=== PATIENT | female | born 1930 | race Caucasian/White ===

== ENCOUNTER → 2016-09-09 | Outpatient (CLI) | payer MEDICARE, BC ==
[~2016-09-09] MED LIST: ACETAMINOPHEN PO; AEROECLIPSE II1 EACH NEB; ALB/IPRATROPIUM/1 E2 INH; ALBUTEROL MININEB NEB; ALBUTEROL17 GM INH; ALLEGRA PO; ALLEGRA-D1 TAB.SR1 PO; ALLEGRA60 M1; AMLODIPINE BESYL5 MG PO; ASPIR-TRIN325 MG PO; ASPIRIN EC81 M1 PO; ASPIRIN81 M1 PO; ASPIRIN81 M2 PO; ASPIRIN81 MG PO; ATORVASTATIN CA80 MG PO; BENADRYL25 M1 PO; BUSPAR PO; BUSPAR5 M1 PO; BUSPAR5 MG PO; BUSPIRONE HCL10 MG PO; CIPRO HC OTIC S10 ML OT; CLEOCIN HCL300 M1 PO; CLOPIDOGREL75 MG PO; CLOTRIMAZOLE100 MG; COMBIVENT; COMBIVENT RESPIM4 GM INH; COMBIVENT U/D3 M2 INH; CORDARONE200 M1 PO; CORRECTOL5 M2 PO; CORTISPORI10 ML OTIC; DALIRESP500 MCG PO; DOCUSATE SODIU100 MG PO; FLAGYL250 M1 PO; FLONASE 0.05% N16 G1; FLONASE ALLERG9.9 ML; FUROSEMIDE40 MG PO; GLIPIZIDE XL5 MG PO; HUMIBID-LA600 MG PO; HYDROCODON-ACE1 EAC7 PO; HYDROCODON-ACE1 EAC9 PO; IMDUR-ER30 M1 DOB; IMDUR-ER30 M1 PO; IMDUR-ER60 M1 PO; ISOSORBIDE DINI30 MG PO; LACTULOSE10 G/15 M2 PO; LANSOPRAZOLE30 M2 PO; LASIX PO; LASIX20 MG PO; LEVAQUIN PO; LEVAQUIN250 MG DOB; LEVAQUIN750 M1 PO; LEVAQUIN750 MG PO; LEVOTHROID88 MCG PO; LEVOTHYROXINE75 MC1 PO; LEVOTHYROXINE75 MCG PO; LISINOPRIL-HCTZ1 T14 PO; LOMOTIL TABLET1 TAB PO; LOW DOSE ASPIRI81 M1 PO; METFORMIN HCL500 M1 PO; METOPROLOL TART25 MG PO; MIRALAX17 GM PO; MOTION SICKNESS25 M4 PO; MUCINEX D ER T1 EACH; MUCINEX DM ER1 EACH PO; MUCUS RELIEF600 MG PO; NASONEX17 GM INH; NILSTAT PO; NITRODISC0.4 MG PO; NITROGLYGERIN0.4 MG SL; NYSTATIN1 EAC2; NYSTATIN5 ML PO; OMEPRAZOLE40 M1 PO; OMNICEF300 MG PO; OXYGEN; PLAVIX PO; PLAVIX300 MG PO; PRAVACHOL20 MG PO; PREDNISOLONE5 MG PO; PREDNISONE PO; PREDNISONE1 MG PO; PREDNISONE10 M1; PREDNISONE10 MG PO; PREDNISONE10 MG/DOSE PO; PREDNISONE5 M1 PO; PREDNISONE5 MG PO; PRILOSEC40 MG PO; PRINIVIL10 MG PO; PROAIR HFA8.5 GM IH; PROAIR HFA8.5 GM INH; PROBIOTIC1 EACH PO; PROVENTIL INH0.5 ML NEB; PYRIDIUM PO; RANEXA500 MG PO; RAYOS2 MG PO; REGLAN10 MG; REGLAN10 MG PO; SERTRALINE HCL100 M1 PO; SIMVASTATIN40 MG PO; SPIRIVA RESPIMAT4 G1 INH; SPIRIVA18 MCG INH; SYMBICORT; SYMBICORT INH; SYMBICORT80 INH; SYNTHROID75 MCG PO; SYNTHROID88 MCG PO; TIROSINT88 MCG PO; TOPROL XL50 MG PO; TUMS500 M1 PO; TYLENOL325 M1; WELLBUTRIN SR150 MG PO; XARELTO15 MG PO; XARELTO20 MG PO; ZITHROMAX PO; ZOFRAN PO; [UNRECOGNIZED DRUG - CODE]; [UNRECOGNIZED DRUG - OTHER] PO
--- NOTE | ~2016-09-09 | CT57 ---
[facility] A Service [facility] RADIOLOGY TEXT RESULTS PATIENT: MAURICE CHUN LOCATION: [facility] : 32 UNIT #: [id number] AGE: [address]: Wilbert Grant MD SEX: F ORDER DR: [id number] [address] [address] [id number] O MR#: [id number] Acc #: [id number] NAME: MAURICE CHUN : 1930 SEX: F STUDY DATE/TIME: 09/09/2016 11:25 UNIT: [facility] ROOM: STUDY DESCRIPTION: CT Chest Wo Cont Attending Physician: Wilbert Grant M.D. Ordering Physician: Wilbert Grant M.D. Primary Care Physician: Lorraine Trevino M.D. MEDICAL IMAGING REPORT This report is preliminary unless electronic signature is present EXAM CT of the chest without contrast INDICATIONS An 85-year-old female with history of followup pneumonia. TECHNIQUE This CT exam was performed with one or more of the following radiation dose reduction techniques: automatic exposure control, adjustment of mA and/or kV according to patient size, and iterative reconstruction. CT of the chest was performed without contrast. Coronal and sagittal reformatted images obtained. Please insert dose reduction statement. COMPARISON 07/26/2016 FINDINGS Stable scarring in the lung apices. Emphysema. Previously noted right middle lobe infiltrate has resolved. No new infiltrates. No lymphadenopathy or pleural effusion. Coronary artery calcification. Limited imaging of the upper abdomen is unremarkable. Bone windows are unremarkable. IMPRESSION 1. Right middle lobe infiltrate has resolved. 2. Stable emphysema. Dictated by... Patrick Kirk M.D. THIS IS AN ELECTRONICALLY VERIFIED REPORT [facility] A Service [facility] RADIOLOGY TEXT RESULTS PATIENT: MAURICE CHUN LOCATION: [facility] : 32 UNIT #: [id number] AGE: [address]: Wilbert Grant MD SEX: F ORDER DR: Patrick Kirk M.D. at 09/10/2016 11:31 AM Malissa TD: 09/10/2016 00:45 JOB #: [id number] MEDICAL IMAGING REPORT Page 1 of 1 COPY
== END | disposition home or self-care (01) ==
LOC: CCAT 11:02
DX: J18.9 Pneumonia, unspecified organism (principal); J43.9 Emphysema, unspecified
CPT/HCPCS: 71250; Q9968

== ENCOUNTER 2016-10-06 10:09 | Inpatient (IN) | payer MEDICARE, BC ==
--- NOTE | ~2016-10-06 | CO ---
Unit #: [id number] #: [id number] Patient: MAURICE PRESTON [id number] [address] [address] [id number] I MR#: [id number] NAME: MAURICE PRESTON. ROOM: 570 Age: 86 Sex: F Admission Date: 10/06/2016 : 1930 Attending Physician: Ne Gabriel M.D. Primary Care Physician: No Primary Care Physician Consultation Date: 10/07/2016 CONSULTATION REPORT REASON FOR CONSULTATION Left humerus fracture. HISTORY OF PRESENT ILLNESS Ms. Preston is an 86-year-old female who tripped while walking to the bathroom on 10/06/2016. She landed on the left leg and hit her left arm on the wall. She reports bruising to both the leg and the shoulder. She is currently on Xarelto for atrial fibrillation. There is no numbness but positive weakness and instability due to pain. PAST MEDICAL HISTORY Significant for: 1. COPD. 2. Sleep apnea. 3. Coronary artery disease. 4. Atrial fibrillation. 5. Hypertension. 6. Hyperlipidemia. 7. Anxiety/depression. 8. Hypothyroidism. 9. Abdominal aortic aneurysm. MEDICATIONS Include: 1. Synthroid. 2. BuSpar. 3. Aspirin. 4. Prednisone. 5. Imdur. 6. Omeprazole. 7. Albuterol. 8. Symbicort. 9. Spiriva. 10. Nystatin. 11. Lasix. 12. Xarelto. 13. Simvastatin. 14. Colace. 15. Dominique. 16. Flonase. 17. Mucinex. 18. Tylenol. 19. Benadryl. 20. Oxygen. Unit #: [id number] #: [id number] Patient: MAURICE PRESTON ALLERGIES Penicillin. SURGICAL HISTORY Significant for: 1. Cardiac stent placement. 2. Partial thyroidectomy. 3. Tubal . 4. Bronchoscopy. 5. Colonoscopy. 6. Cataract extraction. FAMILY HISTORY Insignificant. SOCIAL HISTORY The patient lives at home with her grandson. She denies any smoking, alcohol or illicit drug use. She is a former smoker. Normally she ambulates with a walker. REVIEW OF SYSTEMS Ten organ systems reviewed. Patient denies any blurry vision, congestion, sore throat, shortness of breath, chest pain, abdominal pain, urinary incontinence, numbness, tingling, skin ulcers or lesions, anxiety/depression. Positive for joint pain. PHYSICAL EXAMINATION GENERAL: In no acute distress. Alert and oriented x3. VITALS: Temp 98, pulse 75, respirations 22, blood pressure 141/100. HEENT: PERRLA, nonicteric sclerae. THORAX: Trachea midline. No thyromegaly. CARDIAC: S1, S2. No extra sounds or murmurs. LUNGS: Clear to auscultation, no rales or rhonchi. ABDOMEN: Nondistended, nontender. Positive bowel sounds. : Deferred. MUSCULOSKELETAL: Positive ecchymosis to both the shoulder and the left knee down to the mid shaft tibia. NEUROLOGIC: II-XII intact. SKIN: Cool and dry. PSYCH: Good insight, good judgement. Mood and affect are pleasant. DIAGNOSTIC STUDIES IMAGING: X-rays - two views of the left tib/fib and left shoulder ordered and reviewed and shows a comminuted left humeral head and neck fracture. No fracture seen of the left tib/fib. ASSESSMENT Left humeral head fracture. PLAN I discussed treatment options with the patient. The radiologist is recommending a CT scan to further evaluate the humeral head fracture. Will go ahead and order that and follow the patient throughout her hospital course. The patient will be treated in a sling at this time. The patient is non-weight bearing. Unit #: [id number] #: [id number] Patient: MAURICE PRESTON Dictated by... Lavern Nguyen P.A.C. for Agustin Nicole/wesly TD: 10/07/2016 11:08 JOB #: [id number] CONSULTATION REPORT Page 1 of 1 X Lavern Nguyen CONSULTATION REPORT
--- NOTE | ~2016-10-06 | DS ---
Unit #: [id number] #: [id number] Patient: MAURICE PRESTON [id number] [address] [address] [id number] I MR#: [id number] NAME: MAURICE PRESTON. ROOM: 570 Age: 86 Sex: F Admission Date: 10/06/2016 : 1930 Discharge Date: 10/09/2016 Attending Physician: Ne Gabriel M.D. Primary Care Physician: Primary Care Physician No DISCHARGE SUMMARY PRINCIPAL DIAGNOSES 1. Left humeral neck fracture. 2. Acute blood loss anemia secondary to bleeding left leg wound and large ecchymosis of left shoulder. 3. Acute kidney injury, prerenal. Discharge creatinine 1.0. 4. Paroxysmal atrial fibrillation, currently in normal sinus rhythm and maintained on anticoagulation. 5. Chronic obstructive pulmonary disease without exacerbation. 6. Chronic immunosuppression maintained on prednisone therapy. 7. Left lower yañez skin tear, large, secondary to fall. 8. Left shoulder ecchymosis. 9. Gastroesophageal reflux disease. 10. Anxiety and depression. 11. Obstructive sleep apnea maintained on CPAP. 12. Hypothyroidism. 13. Hyperlipidemia. 14. Abdominal aortic aneurysm. 15. Reactive leukocytosis. CONSULTANTS Dr. Xavier, orthopedic surgery. PROCEDURES 1. Transfusion of 1 unit of packed red blood cells which is pending. 2. X-ray of left humerus, on 10/06/2016, with a comminuted left humeral head and neck fracture. 3. X-ray of left tibia and fibula which was negative for fracture. 4. CT of left upper extremity without contrast on 10/07/2016 with a moderately impacted and angulated transverse oblique fracture of the surgical neck to the proximal left humerus. There are vertically oriented sagittal oblique fracture lines extending through the humeral head articular surface and the anterior aspect of the greater tuberosity. CLINICAL HISTORY AND HOSPITAL COURSE Ms. Preston is an 86-year-old female who presents to the emergency department with left shoulder pain after falling at home. The patient also suffered a left lower leg skin tear with this fall. Please refer to History and Physical for further details. X-ray of the left upper extremity revealed humerus fracture and patient was subsequently admitted. In regard to the patient's humerus fracture, Dr. Xavier was consulted. Patient underwent a CT scan of the shoulder to better evaluate the Unit #: [id number] #: [id number] Patient: MAURICE PRESTON A fracture. At this point, the patient will require a total shoulder for resolution of fracture. Given her COPD and other comorbidities, patient and her family do not wish to have this done and plan is just conservative care for now. In regard to the patient's left leg wound, she was seen by Wound Care who will provide recommendations regarding wound care as an outpatient. The patient did develop a significant drop in hemoglobin due to the bleeding of her left leg wound and large ecchymosis of her left shoulder. Baseline hemoglobin is approximately 11 and she dropped to as low as 7.5 on day of discharge. I am going to transfer her 1 unit of packed red blood cells given her significant underlying COPD to avoid readmission for dyspnea. Her Xarelto was held for 2 days during hospitalization in anticipation of possible surgery. We will reinitiate Xarelto and she will need a CBC in one week. The patient also had some mild acute kidney injury but this resolved with IV fluids and holding of Lasix. The patient also developed some reactive leukocytosis but this has resolved. The patient will be discharged home later today with Home Health. DISCHARGE CONDITION Stable. DISCHARGE STATUS Discharge home with Home Health for PT and OT. DISCHARGE MEDICATIONS 1. Albuterol sulfate nebulizers solution 3 mL q.i.d. 2. Symbicort 160/4.5 micrograms one puff b.i.d. 3. Prednisone 10 mg daily. 4. Tylenol 650 mg p.o. q.4 h. p.r.n. pain. 5. Flonase 0.05% nasal spray, two sprays per nostril daily p.r.n. for allergies. 6. Spiriva 18 mcg one puff daily. 7. Xarelto 15 mg h.s. 8. Benadryl 25 mg p.o. daily p.r.n. for allergies. 9. Dominique 180 mg p.o. daily p.r.n. for allergies. 10. Mucinex DM ER 600/30 mg one b.i.d. p.r.n. for cough. 11. BuSpar 10 mg b.i.d. 12. Colace 100 mg p.o. daily p.r.n. for constipation. 13. Lasix 40 mg p.o. daily p.r.n. for swelling. 14. Simvastatin 40 mg h.s. 15. Aspirin 81 mg daily. 16. Omeprazole 40 mg daily. 17. Levothyroxine 75 mcg p.o. daily. 18. Imdur ER 30 mg p.o. daily. 19. [place] 5/325 one tablet p.o. q.4 h. p.r.n. for pain given #45. DISCHARGE INSTRUCTIONS 1. The patient was instructed to follow a heart healthy diet. 2. Nonweightbearing on the left upper extremity. 3. Increase activity otherwise as tolerated. Unit #: [id number] #: [id number] Patient: MAURICE PRESTON FOLLOWUP 1. The patient will follow up with Dr. Xavier in 10-14 days. 2. She is to follow up with her primary care provider Dr. Trevion in one week. 3. She does need a repeat CBC in one week to ensure hemoglobin is stabilizing. 4. She will receive additional instructions from the wound care nurse prior to discharge regarding care of her left leg which will likely require many weeks to heal. Time spent on discharge 37 minutes. Dictated by... Ne Gabriel M.D. NIEL/kaela TD: 10/09/2016 15:37 JOB #: [id number] DISCHARGE SUMMARY Page 1 of 1 X Ne Gabriel MD X DISCHARGE SUMMARY
--- NOTE | ~2016-10-06 | EKG ---
PATIENT: MAURICE CHUN UNIT #: [id number] Ventricular Rate: 85 BPM Atrial Rate: 85 BPM P-R Interval: 144 ms QRS Duration: 82 ms Q-T Interval: 386 ms QTC Calculation(Bezet): 459 ms P [place]: 67 degrees Calculated R [place]: 57 degrees Calculated T [place]: 84 degrees Diagnosis Line: Sinus rhythm with Premature atrial complexes Diagnosis Line: Nonspecific ST abnormality Diagnosis Line: Abnormal ECG Diagnosis Line: When compared with ECG of 23-JUL-2016 09:12, Diagnosis Line: No significant change was found Diagnosis Line: Confirmed by SHARAN SORIA MD ([id number]) on 10/08/2016 Diagnosis Line: 7:17:04 PM INTERPRETING MD: YANG MEDEIROS
--- NOTE | ~2016-10-06 | CR252 ---
[facility] A Service of [facility] RADIOLOGY TEXT RESULTS PATIENT: MAURICE CHUN LOCATION: [facility] : 32 UNIT #: [id number] AGE: [address]: KECIA WILLARD MD SEX: F ORDER DR: [id number] [facility] [address] [place], [place] [address] [id number] E MR#: [id number] Acc #: [id number] NAME: MAURICE CHUN : 1930 SEX: F STUDY DATE/TIME: 10/06/2016 9:43 UNIT: [facility] ROOM: STUDY DESCRIPTION: CR Tibia and Fibula 2 Views Lt Attending Physician: Ofelia Medrano A.P.R.N. Ordering Physician: Ed Doctor [id number] [facility] Primary Care Physician: Primary Care Physician No MEDICAL IMAGING REPORT This report is preliminary unless electronic signature is present EXAM Left tibia-fibula, 10/06/2016 HISTORY 86-year-old female in the ED with left lower leg pain after a fall today prior to arrival. TECHNIQUE AP and cross-table lateral radiographs of the left tibia and fibula. FINDINGS No fracture, dislocation or other osseous abnormality is demonstrated. IMPRESSION Negative left tibia-fibula series. Dictated by... Eddi Mcdonnell M.D. THIS IS AN ELECTRONICALLY VERIFIED REPORT Eddi Mcdonnell M.D. at 10/06/2016 3:57 PM [place] TD: 10/06/2016 11:39 JOB #: [id number] MEDICAL IMAGING REPORT Page 1 of 1 COPY
--- NOTE | ~2016-10-06 | CT127 ---
[facility] A Service of [facility] & [facility] RADIOLOGY TEXT RESULTS PATIENT: MAURICE CHUN LOCATION: [facility] 570-01 : 32 UNIT #: [id number] AGE: [address]: Ne Gabriel MD SEX: F ORDER DR: [id number] [facility] [address] [place], [place] [address] [id number] I MR#: [id number] Acc #: [id number] NAME: MAURICE CHUN : 1930 SEX: F STUDY DATE/TIME: 10/07/2016 10:38 UNIT: [facility] ROOM: [facility] STUDY DESCRIPTION: CT Upper Ext Lt Wo Cont Attending Physician: Ne Gabriel M.D. Ordering Physician: Ne Gabriel M.D. Primary Care Physician: No Primary Care Physician MEDICAL IMAGING REPORT This report is preliminary unless electronic signature is present EXAM CT left shoulder without contrast 10/07/2016 HISTORY 86-year-old female with left shoulder pain status post fall, 10/06/2016. Humeral head fracture. COMPARISON Left humerus 10/06/2016 TECHNIQUE Helical scan performed through the left shoulder without IV contrast. Coronal and sagittal reformatted images. This CT exam was performed with one or more of the following radiation dose reduction techniques: automatic exposure control, adjustment of mA and/or kV according to patient size, and iterative reconstruction. FINDINGS There is a moderately impacted and angulated transverse oblique fracture through the surgical neck of the proximal left humerus. There is moderate apex anterior angulation with at least 1.5-2 cm of impaction at the fracture site. There is a vertically oriented sagittal oblique fracture line extending from the posteroinferior aspect of the humeral head articular surface to the anterosuperior aspect of the humeral head. There is at least a 6-mm step-off at the humeral head articular surface. There is also a vertically oriented sagittal oblique fracture line extending into the anterior aspect of the greater tuberosity. There is some involvement of the bicipital groove of the humerus. Humeral head is normally located. The scapula and glenoid appear intact. Minimal degenerative change of the acromioclavicular joint. There is some partially imaged consolidation in the lower left lung field. IMPRESSION [facility] A Service of [facility] RADIOLOGY TEXT RESULTS PATIENT: MAURICE CHUN LOCATION: [facility] 570-01 : 32 UNIT #: [id number] AGE: [address]: Ne Gabriel MD SEX: F ORDER DR: 1. Moderately impacted and angulated transverse oblique fracture of the surgical neck of the proximal left humerus. There are vertically oriented sagittal oblique fracture lines extending through the humeral head articular surface as well as to the anterior aspect of the greater tuberosity. There is at least a 6-mm step-off at the articular surface. No dislocation. 2. Minimal arthrosis of the acromioclavicular joint. 3. Partially imaged consolidation in the left lower lung field. Dictated by... Jesús Hutchins M.D. THIS IS AN ELECTRONICALLY VERIFIED REPORT Jesús Hutchins M.D. at 10/07/2016 4:59 PM Sarita TD: 10/07/2016 14:44 JOB #: [id number] MEDICAL IMAGING REPORT Page 1 of 1 COPY
--- NOTE | ~2016-10-06 | HP ---
Unit #: [id number] #: [id number] Patient: MAURICE CHUN [id number] [address] [address] [id number] E MR#: [id number] NAME: MAURICE CHUN ROOM: Age: 86 Sex: F Admission Date: 10/06/2016 : 1930 Attending Physician: Ofelia Medrano A.P.R.N. Primary Care Physician: No Primary Care Physician HISTORY AND PHYSICAL CHIEF COMPLAINT Status post fall. HISTORY OF PRESENT ILLNESS The patient is an 86-year-old female with history of COPD, coronary artery disease, hypertension, abdominal aortic aneurysm, hyperlipidemia and paroxysmal atrial fibrillation on anticoagulation, Xarelto, brought to the emergency room status post fall. The patient was trying to go to the bathroom early in the morning at 6:30 a.m. She tripped and hitting her left leg on couch and fell hitting left upper arm and wall. The patient has had recurrent bruises secondary to the anticoagulation in the past. However, the patient had no falls in the past. The patient had x-ray of the humerus that showed comminuted left humeral head and neck fracture. The patient is being admitted for the above reasons. The patient had skin tearing of the left lower leg with open wound with bleeding. The patient was seen by Wound Care for pressure dressing. The patient denies any loss of consciousness, fever, chills, chest pain, dizziness. PAST MEDICAL HISTORY History of COPD, obstructive sleep apnea on CPAP, coronary artery disease status post stent, atrial fibrillation on chronic anticoagulation with Xarelto, hypertension, hyperlipidemia, anxiety, depression, hypothyroidism, abdominal aortic aneurysm. PAST SURGICAL HISTORY Cardiac stent placement, partial thyroidectomy, tubal , bronchoscopy, colonoscopy, cataract surgery. SOCIAL HISTORY The patient is a former smoker. She lives with her grandson. She walks with a walker. Her CODE status is FULL CODE. FAMILY HISTORY Notable for her sister having coronary artery disease. ALLERGIES Penicillin. HOME MEDICATIONS 1. Synthroid. 2. BuSpar. 3. Low dose aspirin. 4. Prednisone. 5. Imdur. Unit #: [id number] #: [id number] Patient: MAURICE CHUN 6. Omeprazole. 7. Albuterol. 8. Symbicort. 9. Spiriva. 10. Nystatin. 11. Lasix. 12. Xarelto. 13. Simvastatin. 14. Colace. 15. Dominique. 16. Flonase. 17. Mucinex. 18. Acetaminophen. 19. Benadryl. 20. Oxygen. REVIEW OF SYSTEMS A 14-point review of systems was performed and only pertinent positives were described above. Remaining are negative. PHYSICAL EXAMINATION GENERAL APPEARANCE: The patient is lying on the bed not in acute distress. VITAL SIGNS: Temperature 98. Pulse 75. Respiratory rate 22. Blood pressure 141/111. Sating 97% at room air. HEENT: Head atraumatic, normocephalic. Pupils equal, round, reacting to light and accommodation. Dry mucous membranes. NECK: Supple. LUNGS: Decreased air entry. HEART: Irregular rate and rhythm. ABDOMEN: Soft. EXTREMITIES: The patient has a sling on the left upper extremity with head and neck fracture and the patient has a pressure dressing of the lower extremity with the open skin avulsion tearing up the skin. NEUROLOGIC: Alert, awake, oriented. DIAGNOSTIC STUDIES LABORATORY: Glucose 106, BUN 18, creatinine 1.1, sodium 136, potassium 3.6, chloride 107, bicarb 18, calcium 8.8. WBC 9.5, hemoglobin 11.1, hematocrit 34.4, platelets 240. IMAGING: X-ray of the tibia and fibula shows negative left tibia and fibula x-rays. X-ray of the humerus shows comminuted left humeral head and neck fracture. ASSESSMENT 1. Status post fall. 2. Left humerus head and neck fracture. 3. Atrial fibrillation. PLAN To admit the patient to the inpatient with telemetry. Consult Ortho. Dr. Xavier has been consulted. Hold Xarelto. We will have the pain control with morphine and wound care for the pressure dressing. Repeat the labs again in the morning and consider consulting Cardiology for Xarelto with history of bruises and the falls. Continue with the DVT prophylaxis. Check the INR in the morning and further recommendations will follow. Unit #: [id number] #: [id number] Patient: MAURICE CHUN Dictated by Agustin Oneal TD: 10/06/2016 14:00 JOB #: [id number] HISTORY AND PHYSICAL Page 1 of 1 X X HISTORY AND PHYSICAL
--- NOTE | ~2016-10-06 | CR156 ---
[facility] A Service of [facility] & [facility] RADIOLOGY TEXT RESULTS PATIENT: MAURICE CHUN LOCATION: [facility] : 32 UNIT #: [id number] AGE: [address]: KECIA WILLARD MD SEX: F ORDER DR: [id number] [facility] [address] [place], [place] [address] [id number] E MR#: [id number] Acc #: [id number] NAME: MAURICE CHUN : 1930 SEX: F STUDY DATE/TIME: 10/06/2016 9:40 UNIT: [facility] ROOM: STUDY DESCRIPTION: CR Humerus Min 2 View Lt Attending Physician: Ofelia Medrano A.P.R.N. Ordering Physician: Ed Doc Agustin Vargas Primary Care Physician: No Primary Care Physician MEDICAL IMAGING REPORT This report is preliminary unless electronic signature is present EXAM Left humerus 10/06/2016 HISTORY 86-year-old female in the ED with left arm pain after a fall today prior to arrival. TECHNIQUE Limited 2-view left humerus series. FINDINGS Examination shows a comminuted, mildly displaced fracture of the humeral head. There is also a likely transverse humeral neck fracture. Consider CT examination for further characterization. Mid and distal portions of the humerus are negative. IMPRESSION Comminuted left humeral head and neck fracture. Consider followup CT examination of the shoulder. Dictated by... Eddi Mcdonnell M.D. THIS IS AN ELECTRONICALLY VERIFIED REPORT Eddi Mcdonnell M.D. at 10/06/2016 3:57 PM Moira TD: 10/06/2016 11:58 JOB #: [id number] MEDICAL IMAGING REPORT Page 1 of 1 COPY
[2016-10-06 09:33] LABS: BASOPHIL# 0.1 X10e3 (0-0.3); BASOPHIL% 1.1 % (0-2.5); EOSINOPHIL# 0.3 X10e3 (0-0.7); EOSINOPHIL% 2.7 % (0.0-7.0); HEMATOCRIT 34.4 % (35.0-45.0); HEMOGLOBIN 11.1 gm/dL (12.0-16.0); LYMPHOCYTE# 1.4 X10e3 (1.0-3.5); LYMPHOCYTE% 14.5 % (17.0-45.0); MEAN CELL VOLUME 85.6 FL (83-96); MEAN CORPUSCULAR HEMOGLOBIN 27.6 PG (28-34); MEAN CORPUSCULAR HGB CONC 32.3 g/dL (30-36); MEAN PLATELET VOLUME 6.8 FL (6.5-11.5); MONOCYTE# 0.6 X10e3 (0-1.0); MONOCYTE% 6.4 % (3.0-12.0); NEUTROPHIL# 7.1 X10e3 (1.5-7.1); NEUTROPHIL% 75.3 % (40-75); PLATELET COUNT 240 X10e3 (140-420); RED BLOOD COUNT 4.01 X10e (3.90-5.30); RED CELL DISTRIBUTION WIDTH 16.7 % (11.0-15.5); WHITE BLOOD COUNT 9.5 X10e3 (4.0-10.5)
[2016-10-06 09:37] LABS: DIFF IND NO
[2016-10-06 10:02] LABS: BUN/CREATININE RATIO 16.36; CALCIUM SERUM 8.8 mg/dL (8.4-10.2); CREATININE SERUM 1.1 mg/dL (0.6-1.4); GLOM FILT RATE Estimated 46.1 mL/min (>60); POTASSIUM 3.6 mmol/L (3.5-5.1)
[~2016-10-06 10:09] MED LIST changes: -ACETAMINOPHEN PO; -ALBUTEROL MININEB NEB; -AMLODIPINE BESYL5 MG PO; -ASPIRIN EC81 M1 PO; -ATORVASTATIN CA80 MG PO; -BENADRYL25 M1 PO; -COMBIVENT RESPIM4 GM INH; -CORRECTOL5 M2 PO; -DOCUSATE SODIU100 MG PO; -FLONASE ALLERG9.9 ML; -FUROSEMIDE40 MG PO; -GLIPIZIDE XL5 MG PO; -HYDROCODON-ACE1 EAC7 PO; -HYDROCODON-ACE1 EAC9 PO; -IMDUR-ER60 M1 PO; -ISOSORBIDE DINI30 MG PO; -LOW DOSE ASPIRI81 M1 PO; -METFORMIN HCL500 M1 PO; -METOPROLOL TART25 MG PO; -NILSTAT PO; -NYSTATIN1 EAC2; -OMNICEF300 MG PO; -OXYGEN; -PREDNISONE10 M1; -PRINIVIL10 MG PO; -PROVENTIL INH0.5 ML NEB; -RANEXA500 MG PO; -SERTRALINE HCL100 M1 PO; -SPIRIVA RESPIMAT4 G1 INH
[2016-10-06] MEDS ORDERED: LEVOTHYROXINE75 MC1 PO (13:44)
[2016-10-06] MEDS ORDERED: PREDNISONE10 MG PO (13:44)
[2016-10-06] MEDS ORDERED: BUSPIRONE HCL10 MG PO (13:44)
[2016-10-06] MEDS ORDERED: LOW DOSE ASPIRI81 M1 PO (13:44)
[2016-10-06] MEDS ORDERED: OMEPRAZOLE40 M1 PO (13:45)
[2016-10-06] MEDS ORDERED: IMDUR-ER30 M1 PO (13:45)
[2016-10-06] MEDS ORDERED: SYMBICORT INH (13:46)
[2016-10-06] MEDS ORDERED: ALBUTEROL MININEB NEB (13:46)
[2016-10-06] MEDS ORDERED: SPIRIVA RESPIMAT4 G1 INH (13:46)
[2016-10-06] MEDS ORDERED: NILSTAT PO (13:47)
[2016-10-06] MEDS ORDERED: FUROSEMIDE40 MG PO (13:47)
[2016-10-06] MEDS ORDERED: XARELTO15 MG PO (13:48)
[2016-10-06] MEDS ORDERED: SIMVASTATIN40 MG PO (13:48)
[2016-10-06] MEDS ORDERED: ALLEGRA PO (13:49)
[2016-10-06] MEDS ORDERED: FLONASE ALLERG9.9 ML (13:49)
[2016-10-06] MEDS ORDERED: DOCUSATE SODIU100 MG PO (13:49)
[2016-10-06] MEDS ORDERED: BENADRYL25 M1 PO (13:50)
[2016-10-06] MEDS ORDERED: MUCINEX DM ER1 EACH PO (13:50)
[2016-10-06] MEDS ORDERED: ACETAMINOPHEN PO (13:50)
[2016-10-06] MEDS ORDERED: OXYGEN (13:51)
[2016-10-07 06:21] LABS: HEMATOCRIT 27.2 % (35.0-45.0); MEAN CELL VOLUME 86.8 FL (83-96); MEAN CORPUSCULAR HEMOGLOBIN 27.1 PG (28-34); MEAN CORPUSCULAR HGB CONC 31.2 g/dL (30-36); MEAN PLATELET VOLUME 7.6 FL (6.5-11.5); RED BLOOD COUNT 3.13 X10e (3.90-5.30); RED CELL DISTRIBUTION WIDTH 16.5 % (11.0-15.5)
[2016-10-07 06:30] LABS: HEMOGLOBIN 8.5 gm/dL (12.0-16.0); WHITE BLOOD COUNT 14.5 X10e3 (4.0-10.5)
[2016-10-07 06:33] LABS: INR 0.9; PROTHROMBIN TIME (PATIENT) 9.9 SECONDS (9.6-11.5)
[2016-10-07 06:45] LABS: BUN/CREATININE RATIO 15.83; CALCIUM SERUM 8.8 mg/dL (8.4-10.2); CREATININE SERUM 1.2 mg/dL (0.6-1.4); GLOM FILT RATE Estimated 41.5 mL/min (>60); POTASSIUM 4.2 mmol/L (3.5-5.1)
[2016-10-08 07:26] LABS: HEMATOCRIT 25.5 % (35.0-45.0); MEAN CELL VOLUME 86.7 FL (83-96); MEAN CORPUSCULAR HEMOGLOBIN 27.2 PG (28-34); MEAN CORPUSCULAR HGB CONC 31.4 g/dL (30-36); MEAN PLATELET VOLUME 7.7 FL (6.5-11.5); RED BLOOD COUNT 2.94 X10e (3.90-5.30); RED CELL DISTRIBUTION WIDTH 16.3 % (11.0-15.5); WHITE BLOOD COUNT 11.3 X10e3 (4.0-10.5)
[2016-10-08 07:47] LABS: CALCIUM SERUM 8.4 mg/dL (8.4-10.2); GLOM FILT RATE Estimated 51.7 mL/min (>60); MAGNESIUM 1.8 mg/dL (1.6-3.0)
[2016-10-09 05:40] LABS: HEMATOCRIT 22.8 % (35.0-45.0); HEMOGLOBIN 7.5 gm/dL (12.0-16.0); MEAN CELL VOLUME 85.8 FL (83-96); MEAN CORPUSCULAR HEMOGLOBIN 28.1 PG (28-34); MEAN CORPUSCULAR HGB CONC 32.8 g/dL (30-36); MEAN PLATELET VOLUME 7.4 FL (6.5-11.5); RED BLOOD COUNT 2.65 X10e (3.90-5.30); RED CELL DISTRIBUTION WIDTH 16.7 % (11.0-15.5); WHITE BLOOD COUNT 9.2 X10e3 (4.0-10.5)
[2016-10-09] MEDS ORDERED: HYDROCODON-ACE1 EAC7 PO (16:03)
== END 2016-10-09 16:51 | disposition home health service (06) | DRG 563 ==
LOC: CED 10:09 → CEDOF 13:48 → C5C 18:01
PROVIDERS: Internal Medicine; Nurse Practitioner
PROC: 30233N1 Transfusion of Nonautologous Red Blood Cells into Peripheral Vein, Percutaneous Approach (ICD-10-PCS; principal; 2016-10-09)
DX: S42.392A Other fracture of shaft of left humerus, initial encounter for closed fracture (principal); N17.9 Acute kidney failure, unspecified; I48.0 Paroxysmal atrial fibrillation; J44.9 Chronic obstructive pulmonary disease, unspecified; D62 Acute posthemorrhagic anemia; W01.0XXA Fall on same level from slipping, tripping and stumbling without subsequent striking against object, initial encounter; Y92.009 Unspecified place in unspecified non-institutional (private) residence as the place of occurrence of the external cause; I25.10 Atherosclerotic heart disease of native coronary artery without angina pectoris; I10 Essential (primary) hypertension; I71.4 Abdominal aortic aneurysm, without rupture; E78.5 Hyperlipidemia, unspecified; Z79.01 Long term (current) use of anticoagulants; Z98.49 Cataract extraction status, unspecified eye; Z87.891 Personal history of nicotine dependence; Z88.0 Allergy status to penicillin; Z79.82 Long term (current) use of aspirin; F41.9 Anxiety disorder, unspecified; F32.9 Major depressive disorder, single episode, unspecified; E03.9 Hypothyroidism, unspecified; S81.812A Laceration without foreign body, left lower leg, initial encounter; D72.829 Elevated white blood cell count, unspecified; R58 Hemorrhage, not elsewhere classified; G47.33 Obstructive sleep apnea (adult) (pediatric); K21.9 Gastro-esophageal reflux disease without esophagitis; Z79.52 Long term (current) use of systemic steroids
CPT/HCPCS: 36415; 73060; 73200; 73590; 80048; 83735; 85025; 85027; 85610; 86850; 86900; 86901; 86923; 93005; 94640; 94664; 94760; 96361; 96372; 96374; 96375; 97163; 97166; 97530; 97535; 99285; G8978-GP; G8979-GP; G8987-GO; G8988-GO; J2270; J2405; P9016

== ENCOUNTER 2016-10-14 18:37 | Emergency (ER) | payer MEDICARE, BC ==
[2016-10-14 16:49] LABS: BASOPHIL# 0.1 X10e3 (0-0.3); BASOPHIL% 0.5 % (0-2.5); EOSINOPHIL# 0.1 X10e3 (0-0.7); EOSINOPHIL% 0.5 % (0.0-7.0); HEMATOCRIT 29.8 % (35.0-45.0); HEMOGLOBIN 9.4 gm/dL (12.0-16.0); LYMPHOCYTE# 0.5 X10e3 (1.0-3.5); LYMPHOCYTE% 4.4 % (17.0-45.0); MEAN CELL VOLUME 86.6 FL (83-96); MEAN CORPUSCULAR HEMOGLOBIN 27.3 PG (28-34); MEAN CORPUSCULAR HGB CONC 31.5 g/dL (30-36); MEAN PLATELET VOLUME 7.3 FL (6.5-11.5); MONOCYTE# 0.5 X10e3 (0-1.0); MONOCYTE% 4.5 % (3.0-12.0); NEUTROPHIL# 10.3 X10e3 (1.5-7.1); NEUTROPHIL% 90.1 % (40-75); PLATELET COUNT 383 X10e3 (140-420); RED BLOOD COUNT 3.44 X10e (3.90-5.30); RED CELL DISTRIBUTION WIDTH 16.2 % (11.0-15.5); WHITE BLOOD COUNT 11.5 X10e3 (4.0-10.5)
[2016-10-14 16:57] LABS: DIFF IND NO
[2016-10-14 17:14] LABS: ALBUMIN SERUM 3.3 g/dL (3.5-5.0); BILIRUBIN, DIRECT 0.2 mg/dL (0.0-0.2); BILIRUBIN,INDIRECT 0.8 mg/dL (0.0-0.9); CALCIUM SERUM 8.6 mg/dL (8.4-10.2); GLOM FILT RATE Estimated 51.7 mL/min (>60); POTASSIUM 4.5 mmol/L (3.5-5.1); PROTEIN TOTAL SERUM 6.4 g/dL (6.0-8.3)
[~2016-10-14 18:37] MED LIST changes: +ACETAMINOPHEN PO; +ALBUTEROL MININEB NEB; +BENADRYL25 M1 PO; +DOCUSATE SODIU100 MG PO; +FLONASE ALLERG9.9 ML; +FUROSEMIDE40 MG PO; +HYDROCODON-ACE1 EAC7 PO; +LOW DOSE ASPIRI81 M1 PO; +NILSTAT PO; +OXYGEN; +SPIRIVA RESPIMAT4 G1 INH
== END 2016-10-14 20:02 | disposition home or self-care (01) ==
LOC: CED 18:37
PROVIDERS: Emergency Medicine
DX: M79.662 Pain in left lower leg (principal); J45.909 Unspecified asthma, uncomplicated; J44.9 Chronic obstructive pulmonary disease, unspecified; E03.9 Hypothyroidism, unspecified; Z88.1 Allergy status to other antibiotic agents; Z88.0 Allergy status to penicillin; Z79.899 Other long term (current) drug therapy
CPT/HCPCS: 36415; 80048; 80076; 83605; 85025; 85730; 87040; 87070; 87077; 87186; 87205; 96372; 99283; J2270

== ENCOUNTER 2016-11-08 10:29 | Inpatient (IN) | payer MEDICARE, BC ==
--- NOTE | ~2016-11-08 | CR72 ---
[facility] A Service of [facility] & [facility] RADIOLOGY TEXT RESULTS PATIENT: MAURICE CHUN LOCATION: [place] [address] : 32 UNIT #: [id number] AGE: [address]: Ne Gabriel MD SEX: F ORDER DR: [id number] [facility] [address] [place], [place] [address] [id number] E MR#: [id number] Acc #: [id number] NAME: MAURICE CHUN : 1930 SEX: F STUDY DATE/TIME: 11/08/2016 11:29 UNIT: [facility] ROOM: STUDY DESCRIPTION: CR Chest Single View Portable Attending Physician: Fernando Saucedo M.D. Ordering Physician: Fernando Saucedo M.D. Primary Care Physician: No Primary Care Physician MEDICAL IMAGING REPORT This report is preliminary unless electronic signature is present EXAM Portable chest, 11/08/2016. HISTORY 86-year-old female with shortness of air for 1 day. COMPARISON Chest, 07/25/2016. FINDINGS Frontal chest demonstrates atelectasis/infiltrate in both lung bases and the right midlung field. Early pneumonia not excluded. No pneumothorax or significant pleural effusion. Heart size and mediastinum within normal limits. Pulmonary vasculature unremarkable. IMPRESSION Atelectasis/infiltrate in both lung bases and the right midlung field. Early pneumonia not excluded. Dictated by... Jesús Hutchins M.D. THIS IS AN ELECTRONICALLY VERIFIED REPORT Jesús Hutchins M.D. at 11/09/2016 6:22 AM JACQUELINE/lucho TD: 11/08/2016 12:05 JOB #: [id number] MEDICAL IMAGING REPORT Page 1 of 1 COPY
--- NOTE | ~2016-11-08 | HP ---
Unit #: [id number] #: [id number] Patient: MAURICE CHUN [id number] [address] [address] [id number] I MR#: [id number] NAME: MAURICE CHUN. ROOM: 70673 Age: 86 Sex: F Admission Date: 11/08/2016 : 1930 Attending Physician: Waleska Osborne M.D. Primary Care Physician: No Primary Care Physician HISTORY AND PHYSICAL CHIEF COMPLAINT Shortness of breath. HISTORY OF PRESENT ILLNESS The patient is an 86-year-old female with history of COPD, coronary artery disease, hypertension, aortic aneurysm, hyperlipidemia and paroxysmal AFib on anticoagulation, brought to the emergency room complaining of shortness of breath. The patient stated that the patient has been having shortness of breath associated with a productive cough, yellowish, for the last three days. The patient went to see the PCP earlier this morning and was found to have a low oxygen saturation and recommended to come to the emergency room. The patient had a chest x-ray that showed atelectasis/infiltrate in both lung bases and the right midlung field. Early pneumonia not excluded. The patient is being admitted for the above reasons. The patient denies any fever, chills. Positive for nausea and vomiting. The patient denies any sick contacts. PAST MEDICAL HISTORY History of COPD, obstructive sleep apnea on CPAP, coronary artery disease status post stent, AFib, hypertension, hyperlipidemia, anxiety, depression, hypothyroidism, abdominal aortic aneurysm. PAST SURGICAL HISTORY Cardiac stents, partial thyroidectomy, tubal , bronchoscopy, colonoscopy, cataract surgery. SOCIAL HISTORY The patient is a former smoker. She lives with her grandson. She walks with a walker. Her CODE status is FULL CODE from the records. FAMILY HISTORY Notable for coronary artery disease. ALLERGIES Penicillin. HOME MEDICATIONS 1. Synthroid. 2. BuSpar. 3. Aspirin. 4. Isosorbide 5. Omeprazole. 6. Proventil. 7. Symbicort. Unit #: [id number] #: [id number] Patient: MAURICE CHUN 8. Spiriva. 9. Nystatin. 10. Lasix. REVIEW OF SYSTEMS A 14-point review of systems was performed and only pertinent positive findings as described above. FAMILY HISTORY Reviewed and none. PHYSICAL EXAMINATION GENERAL APPEARANCE: The patient is lying on a bed not in acute distress. VITAL SIGNS: Temperature 97.8. Pulse 97. Respiratory rate 20. Blood pressure 143/79. Sating 89% at room air. HEENT: Head: Atraumatic, normocephalic. ENT: Pupils equal, round, reacting to light and accommodation. Extraocular movements are intact. NECK: Supple. LUNGS: Decreased air entry at the bases. Positive for rhonchi and wheezing. HEART: Regular rate and rhythm. ABDOMEN: Soft. Positive bowel sounds. EXTREMITIES: No cyanosis. No clubbing. NEUROLOGIC: Alert, awake, oriented. No gross focal motor deficit. DIAGNOSTIC STUDIES LABORATORY: Glucose 128, BUN 20, creatinine 1.2, sodium 134, potassium 4.3, chloride 104, bicarb 20, calcium 9, total protein 6.5, albumin 3.5, AST 23, ALT 24, alkaline phosphatase 92. Lactic acid is one. INR 0.9. WBC 21, hemoglobin 10.1, hematocrit 33, platelets 354, neutrophils 93.1 and bandemia with 12%. IMAGING: Chest x-ray shows atelectasis/infiltrate in both lung bases and the right midlung field. Early pneumonia not excluded. ASSESSMENT 1. Pneumonia. 2. Sepsis. 3. Hypertension. PLAN To admit the patient to inpatient. The patient will be initiated on the sepsis protocol. Continue with IV antibiotics with cefepime and Zithromax. We will have the Pulmonary consult with Dr. Grant, as seen in the past. Check the sputum cultures. Further recommendations will follow as more lab results are available. Dictated by Agustin Oneal TD: 11/08/2016 17:21 JOB #: [id number] Unit #: [id number] #: [id number] Patient: MAURICE CHUN HISTORY AND PHYSICAL Page 1 of 1 X X HISTORY AND PHYSICAL
--- NOTE | ~2016-11-08 | CO ---
Unit #: [id number] #: [id number] Patient: MAURICE CHUN [id number] [address] [address] [id number] I MR#: [id number] NAME: MAURICE CHUN. ROOM: 339 Age: 86 Sex: F Admission Date: 11/08/2016 : 1930 Attending Physician: Ne Gabriel M.D. Primary Care Physician: Primary Care Physician No Consultation Date: 11/08/2016 CONSULTATION REPORT REASON FOR CONSULTATION Respiratory failure, pneumonia and COPD. HISTORY OF PRESENT ILLNESS The patient is an 86-year-old female who has had several recent hospitalizations. She has fairly severe COPD and is followed by Dr. Grant in our office and in the hospital. She had been in the hospital for pneumonia, recovered from that, had a fall with severe leg laceration and arm fracture and was at home recovering from that and was feeling stronger. She has had a 1 to 3 day history of increased shortness of breath, mucopurulent sputum, wheezing and shortness of breath. In the emergency room, chest x-ray suggested pneumonia. She now is requiring oxygen. She has a pulse oximeter at home and she monitors her saturations frequently, but she has no oxygen at home. She noticed that her saturations this morning were 85%. PAST MEDICAL HISTORY Remarkable for COPD, coronary artery disease, hypertension, peripheral vascular disease with abdominal aortic aneurysm, hyperlipidemia, tobacco use with recent tobacco cessation, chronic steroid use and a history of colitis. MEDICATIONS At home include: 1. Synthroid. 2. BuSpar. 3. Aspirin. 4. Prednisone 10 mg a day. 5. Imdur. 6. Prilosec. 7. Symbicort. 8. Spiriva. 9. Nystatin. 10. Albuterol inhaler or albuterol nebulizer. 11. Lasix. ALLERGIES Penicillin. SOCIAL HISTORY Fairly recently quit smoking 1-2 years ago. FAMILY HISTORY No definite familial lung disease. Unit #: [id number] #: [id number] Patient: MAURICE CHUN A REVIEW OF SYSTEMS She denies any difficulty swallowing. No choking or coughing when she eats or drinks. No fever, chills, chest pain, palpitations, abdominal pain, melena, hematuria, dysuria, focal weakness or paresthesias. She obviously has difficulty with her left arm that is in a sling and her left leg is wrapped. Further review of systems negative. PHYSICAL EXAMINATION GENERAL: Reveals a patient, who is very pleasant, awake and alert. No distress, chronically ill-appearing. VITAL SIGNS: She is afebrile, pulse 81, respiratory rate is 20, blood pressure is 143/79. HEENT: Pupils are equal, round, and reactive to light. Sclerae anicteric. Head atraumatic. NECK: Supple. No supraclavicular or cervical adenopathy appreciated. Mucous membranes moist. CHEST: No definite consolidation. She had expiratory wheeze. Diffuse rhonchi. CARDIAC: Examination reveals regular rate and rhythm. No pathologic murmur, rub, or gallop. ABDOMEN: Soft and nontender. No hepatomegaly or rebound. EXTREMITIES: Reveal trace edema. No calf tenderness. No clubbing or cyanosis. NEUROLOGIC: No unexplained focal sensory or muscle deficits. She was very reluctant to cooperate with the neuro exam. Quite frankly, she is very reluctant to even participate with having her blood pressure checked. DIAGNOSTIC STUDIES LABORATORY RESULTS: BUN is 28, creatinine is 1.2. Sodium mildly low at 134. Cardiac enzymes negative. White blood cell count is 21, hemoglobin 10.1, platelet count 354. Blood cultures performed and are pending. Sputum in July of this year, normal anthony. Chest x-ray, patchy infiltrates. I do not see a formal EKG. IMPRESSION 1. Acute hypoxemic respiratory failure. 2. Pulmonary infiltrates consistent with pneumonia. 3. Chronic obstructive pulmonary disease. 4. Chronic prednisone use. 5. Coronary artery disease. 6. Other medical problems listed above. PLAN Broad-spectrum antibiotics for hospital-acquired pneumonia. I will check a procalcitonin level as well as a BNP. Sputum for Gram stain and culture and she believes that she will be able to expectorate a good specimen. Stress steroids and nebulized bronchodilators. I would suggest a swallow evaluation given her repeated hospitalizations and repeated pulmonary infiltrates. Thank you very much for allowing me to participate in the care of Ms. Chun. Dictated by... Donnell Gonzalez M.D. Unit #: [id number] #: [id number] Patient: MAURICE CHUN MOOKIE/odette TD: 11/09/2016 08:57 JOB #: [id number] CC: Dr. Quesada CONSULTATION REPORT Page 1 of 1 X Donnell Gonzalez MD CONSULTATION REPORT
--- NOTE | ~2016-11-08 | DS ---
Unit #: [id number] #: [id number] Patient: MAURICE CHUN [id number] [address] [address] [id number] I MR#: [id number] NAME: MAURICE CHUN. ROOM: 339 Age: 86 Sex: F Admission Date: 11/08/2016 : 1930 Discharge Date: 11/11/2016 Attending Physician: Ne Gabriel M.D. Primary Care Physician: No Primary Care Physician DISCHARGE SUMMARY PRINCIPAL DIAGNOSES 1. Sepsis secondary to bibasilar pneumonia, likely aspiration in origin. 2. Acute hypoxic respiratory failure, now being discharged on 2 L of oxygen per nasal cannula continuously. May result in chronic respiratory failure. 3. Acute exacerbation of chronic obstructive pulmonary disease. 4. Esophageal dysmotility. 5. Non-anion gap metabolic acidosis. 6. Acute kidney injury, prerenal: Discharge creatinine 0.8. 7. Recent left humerus fracture, nonoperative. 8. Paroxysmal atrial fibrillation, currently in normal sinus rhythm and maintained on anticoagulation. 9. Chronic immunosuppression. 10. Obstructive sleep apnea, on CPAP. 11. Normocytic anemia. 12. History of thrush. 13. Hyperlipidemia. 14. Gastroesophageal reflux disease. 15. Hypothyroidism. 16. Coronary artery disease. 17. Left leg wound following fall in September of 2016, being followed by Dr. Snow as an outpatient. 18. Abdominal aortic aneurysm. CONSULTANTS Dr. Grant - Pulmonology. PROCEDURE Chest x-ray on November 08, 2016, with infiltrate in both lung basis and right midlung field. CLINICAL HISTORY/HOSPITAL COURSE Ms. Chun is an 86-year-old female who presents to the emergency department with increasing shortness of breath. Please refer to H and P for further details. In the emergency department, she was found to be hypoxic and chest x-ray revealed multifocal infiltrate. She was subsequently admitted. Given recent admission in September, the patient was placed on broad spectrum antibiotics for healthcare-associated pneumonia. Sputum, however, grew only normal anthony. On antibiotic therapy, patient has remained afebrile and leukocytosis has essentially resolved. The patient does have underlying esophageal dysmotility which was confirmed on video swallow study. I suspect she may have some underlying aspiration. We are going Unit #: [id number] #: [id number] Patient: MAURICE CHUN to complete a course of Omnicef. In regards to patient's hypoxia, again, she was placed on oxygen and Dr. Grant was consulted. The patient was placed on IV steroids and has now been transitioned down to oral steroids. She still remains mildly hypoxic with O2 sats of 86% to 88% in the room. We are going to arrange home oxygen at 2 L per nasal cannula continuously and this can be tapered off as an outpatient, if possible. Patient's other chronic conditions remain stable. She does have a chronic left leg wound which was evaluated by surgery without formal consult during hospitalization and patient will follow up with Dr. Snow. DISCHARGE CONDITION Stable. DISCHARGE STATUS Discharge to home. DISCHARGE MEDICATIONS 1. Omnicef 300 mg p.o. b.i.d. for one week. 2. Prednisone 10 mg tablets, four tablets for four days, three tablets for four days, two tablets for four days and then to return to one tablet p.o. daily which is patient's home dose. 3. Oxygen at 2 L per nasal cannula continuous. 4. Albuterol sulfate nebulizer solution, 0.5 mL nebulized four times daily. 5. Symbicort 160/4.5 mcg, one puff b.i.d. 6. Flonase 0.05% nasal spray, two sprays per nostril daily. 7. Spiriva 18 mcg, one puff daily. 8. Xarelto 15 mg daily. 9. Nystatin 5 mL p.o. four times daily. 10. BuSpar 10 mg b.i.d. 11. Bisacodyl 5 mg daily. 12. Lasix 40 mg daily. 13. Simvastatin 40 mg at bedtime. 14. Aspirin 81 mg daily. 15. [place] 7.5/325, one tablets p.o. q.4 hours p.r.n. for pain. 16. Omeprazole 40 mg daily. 17. Synthroid 75 mcg daily. 18. Isosorbide dinitrate 30 mg daily. DISCHARGE INSTRUCTIONS The patient was instructed to wear oxygen at 2 L per nasal cannula continuously at all times. She will follow a heart healthy diet. She can increase her activity as tolerated. She is still non-weight bearing on the left shoulder due to recent fracture in September. FOLLOWUP The patient will follow up with Dr. Grant or Dianne Shoemaker in his office in two weeks. She will follow up with Dr. Snow as scheduled next week. Time spent on discharge - 34 minutes. Dictated by... Unit #: [id number] #: [id number] Patient: LAYMAURICE Kraig Gabriel M.D. KEH/wesly TD: 11/12/2016 08:20 JOB #: [id number] CC: oLrraine Trevino M.D. DISCHARGE SUMMARY Page 1 of 1 X Ne Gabriel MD X DISCHARGE SUMMARY
[2016-11-08] MEDS ORDERED: RANEXA500 MG PO (10:40)
[2016-11-08] MEDS ORDERED: COMBIVENT RESPIM4 GM INH (10:41)
[2016-11-08] MEDS ORDERED: SYMBICORT80 INH (10:41)
[2016-11-08] MEDS ORDERED: SPIRIVA18 MCG INH (10:41)
[2016-11-08] MEDS ORDERED: SERTRALINE HCL100 M1 PO (10:42)
[2016-11-08] MEDS ORDERED: METFORMIN HCL500 M1 PO (10:42)
[2016-11-08] MEDS ORDERED: ATORVASTATIN CA80 MG PO (10:42)
[2016-11-08] MEDS ORDERED: METOPROLOL TART25 MG PO (10:43)
[2016-11-08] MEDS ORDERED: AMLODIPINE BESYL5 MG PO (10:43)
[2016-11-08] MEDS ORDERED: OXYGEN (10:44)
[2016-11-08] MEDS ORDERED: FUROSEMIDE40 MG PO ×2 (10:45→14:50)
[2016-11-08] MEDS ORDERED: PRINIVIL10 MG PO (10:45)
[2016-11-08] MEDS ORDERED: ASPIRIN81 M2 PO (10:45)
[2016-11-08] MEDS ORDERED: HYDROCODON-ACE1 EAC7 PO (10:46)
[2016-11-08] MEDS ORDERED: GLIPIZIDE XL5 MG PO (10:46)
[2016-11-08] MEDS ORDERED: IMDUR-ER60 M1 PO (10:46)
[2016-11-08 13:26] LABS: BASOPHIL% 0.2 % (0-2.5); EOSINOPHIL% 0.1 % (0.0-7.0); HEMOGLOBIN 10.1 gm/dL (12.0-16.0); LYMPHOCYTE# 0.4 X10e3 (1.0-3.5); LYMPHOCYTE% 2.1 % (17.0-45.0); MEAN CELL VOLUME 83.8 FL (83-96); MEAN CORPUSCULAR HEMOGLOBIN 25.7 PG (28-34); MEAN CORPUSCULAR HGB CONC 30.7 g/dL (30-36); MEAN PLATELET VOLUME 7.5 FL (6.5-11.5); MONOCYTE% 4.5 % (3.0-12.0); NEUTROPHIL# 19.6 X10e3 (1.5-7.1); NEUTROPHIL% 93.1 % (40-75); PLATELET COUNT 354 X10e3 (140-420); RED BLOOD COUNT 3.94 X10e (3.90-5.30); RED CELL DISTRIBUTION WIDTH 17.6 % (11.0-15.5)
[2016-11-08 13:28] LABS: DIFF IND YES
[2016-11-08 13:39] LABS: ALBUMIN SERUM 3.5 g/dL (3.5-5.0); BILIRUBIN, DIRECT 0.1 mg/dL (0.0-0.2); BILIRUBIN,INDIRECT 0.5 mg/dL (0.0-0.9); BILIRUBIN,TOTAL 0.6 mg/dL (0.2-2.0); BUN/CREATININE RATIO 16.66; CREATININE SERUM 1.2 mg/dL (0.6-1.4); GLOM FILT RATE Estimated 41.5 mL/min (>60); POTASSIUM 4.3 mmol/L (3.5-5.1); PROTEIN TOTAL SERUM 6.5 g/dL (6.0-8.3)
[2016-11-08 13:52] LABS: POC - CKMB 3.9 ng/mL (0.0-7.9); POC - TROPONIN <0.05 ng/mL (<=0.05)
[2016-11-08 14:20] LABS: ANISOCYTOSIS MOD; PLATELET ESTIMATE NORMAL (NORMAL); POIKILOCYTOSIS SL
[2016-11-08] MEDS ORDERED: BUSPIRONE HCL10 MG PO (14:45)
[2016-11-08] MEDS ORDERED: ASPIRIN EC81 M1 PO (14:45)
[2016-11-08] MEDS ORDERED: SYNTHROID75 MCG PO (14:45)
[2016-11-08] MEDS ORDERED: PREDNISONE10 MG PO (14:46)
[2016-11-08] MEDS ORDERED: ISOSORBIDE DINI30 MG PO (14:47)
[2016-11-08] MEDS ORDERED: OMEPRAZOLE40 M1 PO (14:47)
[2016-11-08] MEDS ORDERED: PROVENTIL INH0.5 ML NEB (14:48)
[2016-11-08] MEDS ORDERED: SYMBICORT INH (14:48)
[2016-11-08] MEDS ORDERED: SPIRIVA RESPIMAT4 G1 INH (14:49)
[2016-11-08] MEDS ORDERED: NYSTATIN1 EAC2 (14:50)
[2016-11-08 15:06] LABS: POC - TROPONIN <0.05 ng/mL (<=0.05)
[2016-11-08] MEDS ORDERED: SIMVASTATIN40 MG PO (23:51)
[2016-11-08] MEDS ORDERED: HYDROCODON-ACE1 EAC9 PO (23:53)
[2016-11-08] MEDS ORDERED: XARELTO15 MG PO (23:54)
[2016-11-08] MEDS ORDERED: CORRECTOL5 M2 PO (23:57)
[2016-11-09 05:58] LABS: BASOPHIL% 0.2 % (0-2.5); EOSINOPHIL# 0.1 X10e3 (0-0.7); EOSINOPHIL% 0.3 % (0.0-7.0); HEMATOCRIT 31.1 % (35.0-45.0); HEMOGLOBIN 9.3 gm/dL (12.0-16.0); LYMPHOCYTE# 0.6 X10e3 (1.0-3.5); LYMPHOCYTE% 3.6 % (17.0-45.0); MEAN CELL VOLUME 84.6 FL (83-96); MEAN CORPUSCULAR HEMOGLOBIN 25.4 PG (28-34); MEAN PLATELET VOLUME 7.2 FL (6.5-11.5); MONOCYTE# 0.7 X10e3 (0-1.0); MONOCYTE% 4.3 % (3.0-12.0); NEUTROPHIL# 14.1 X10e3 (1.5-7.1); NEUTROPHIL% 91.6 % (40-75); PLATELET COUNT 302 X10e3 (140-420); RED BLOOD COUNT 3.67 X10e (3.90-5.30); RED CELL DISTRIBUTION WIDTH 17.3 % (11.0-15.5); WHITE BLOOD COUNT 15.4 X10e3 (4.0-10.5)
[2016-11-09 05:59] LABS: DIFF IND NO
[2016-11-09 06:40] LABS: BUN/CREATININE RATIO 13.63; CALCIUM SERUM 8.5 mg/dL (8.4-10.2); CREATININE SERUM 1.1 mg/dL (0.6-1.4); GLOM FILT RATE Estimated 46.1 mL/min (>60); POTASSIUM 4.3 mmol/L (3.5-5.1)
[2016-11-10 07:33] LABS: HEMATOCRIT 29.4 % (35.0-45.0); HEMOGLOBIN 8.9 gm/dL (12.0-16.0); MEAN CELL VOLUME 85.2 FL (83-96); MEAN CORPUSCULAR HEMOGLOBIN 25.9 PG (28-34); MEAN CORPUSCULAR HGB CONC 30.4 g/dL (30-36); MEAN PLATELET VOLUME 7.5 FL (6.5-11.5); RED BLOOD COUNT 3.45 X10e (3.90-5.30); RED CELL DISTRIBUTION WIDTH 17.6 % (11.0-15.5); WHITE BLOOD COUNT 13.1 X10e3 (4.0-10.5)
[2016-11-10 08:15] LABS: BUN/CREATININE RATIO 16.25; CALCIUM SERUM 8.8 mg/dL (8.4-10.2); CREATININE SERUM 0.8 mg/dL (0.6-1.4); GLOM FILT RATE Estimated 67.8 mL/min (>60)
[2016-11-11 08:00] LABS: BASOPHIL% 0.3 % (0-2.5); EOSINOPHIL% 0.2 % (0.0-7.0); HEMATOCRIT 29.2 % (35.0-45.0); LYMPHOCYTE# 0.7 X10e3 (1.0-3.5); LYMPHOCYTE% 5.5 % (17.0-45.0); MEAN CELL VOLUME 83.9 FL (83-96); MEAN CORPUSCULAR HEMOGLOBIN 25.9 PG (28-34); MEAN CORPUSCULAR HGB CONC 30.9 g/dL (30-36); MEAN PLATELET VOLUME 7.1 FL (6.5-11.5); MONOCYTE# 0.8 X10e3 (0-1.0); MONOCYTE% 5.8 % (3.0-12.0); NEUTROPHIL# 11.9 X10e3 (1.5-7.1); NEUTROPHIL% 88.2 % (40-75); PLATELET COUNT 344 X10e3 (140-420); RED BLOOD COUNT 3.48 X10e (3.90-5.30); RED CELL DISTRIBUTION WIDTH 17.2 % (11.0-15.5); WHITE BLOOD COUNT 13.5 X10e3 (4.0-10.5)
[2016-11-11 08:01] LABS: DIFF IND NO
[2016-11-11] MEDS ORDERED: PREDNISONE10 M1 ×2 (13:00→13:01)
[2016-11-11] MEDS ORDERED: OMNICEF300 MG PO (13:00)
== END 2016-11-11 16:03 | disposition home or self-care (01) | DRG 871 ==
LOC: CED 10:29 → CEDOF 15:35 → CED 15:52 → CEDOF 21:58 → C3A PCU 21:58
PROVIDERS: Emergency Medicine; Internal Medicine
DX: A41.9 Sepsis, unspecified organism (principal); J69.0 Pneumonitis due to inhalation of food and vomit; J96.01 Acute respiratory failure with hypoxia; J44.1 Chronic obstructive pulmonary disease with (acute) exacerbation; E87.2 Acidosis; N17.9 Acute kidney failure, unspecified; B37.0 Candidal stomatitis; K22.4 Dyskinesia of esophagus; I48.0 Paroxysmal atrial fibrillation; Z79.01 Long term (current) use of anticoagulants; G47.33 Obstructive sleep apnea (adult) (pediatric); E78.5 Hyperlipidemia, unspecified; K21.9 Gastro-esophageal reflux disease without esophagitis; E03.9 Hypothyroidism, unspecified; I25.10 Atherosclerotic heart disease of native coronary artery without angina pectoris; I71.4 Abdominal aortic aneurysm, without rupture; Z87.891 Personal history of nicotine dependence; Z95.5 Presence of coronary angioplasty implant and graft; F41.9 Anxiety disorder, unspecified; F32.9 Major depressive disorder, single episode, unspecified; Z98.49 Cataract extraction status, unspecified eye; Z79.82 Long term (current) use of aspirin; I10 Essential (primary) hypertension; I73.9 Peripheral vascular disease, unspecified; Z79.52 Long term (current) use of systemic steroids; S42.302D Unspecified fracture of shaft of humerus, left arm, subsequent encounter for fracture with routine healing
CPT/HCPCS: 36415; 71010; 74230; 80048; 80076; 82308; 82553; 83605; 83880; 84484; 85025; 85027; 87040; 87070; 87205; 87899; 92610; 92611; 94640; 94664; 94760; 96365; 97162; 97166; 99285; G8978-GP; G8979-GP; G8980-GP; G8987-GO; G8988-GO; G8996-GN; G8997-GN; G8998-GN; J0456; J0692; J1650; J1720; J3260; J3370